=== PATIENT | male | born 1980 | race Caucasian/White ===

== ENCOUNTER → 2017-07-09 | Outpatient (REF) | payer MEDICARE, MEDICAID ==
[~2017-07-09] MED LIST: ARI10 PO; ARIP2TAB9 PO; ARIP5TAB28 PO; ATOR10TA24 PO; ATOR20TA22 PO; ATR10 PO; BRIV50TA PO; CEFU250 PO; CIPR-368 PO; CLON0.5T66 PO; DIAZ5SOL4 PO; DULO60CA51 PO; ENA10 PO; ENA5 PO; ESCI20TA38 PO; GUAI600T48 PO; HUMALOG SC; INSU100V24 SQ; LACO50TA5 PO; LAMO200T46 PO; LANI SC; LANI SQ; LEV125 PO; LEVE100047 PO; LEVO150T72 PO; LOR5/325 PO; MAGIC; MAGIC PO; MEC25 PO; NAPR-731 PO; ONDA4TAB PO; OXY10 PO; OXYIR PO; PHEN100 PO; TAMS0.4C70 PO; VENL75TA PO
== END ==
LOC: ZZSENDIN 15:54
PROVIDERS: ATTEND Family Medicine
DX: Z01.812 Encounter for preprocedural laboratory examination (principal); Z01.810 Encounter for preprocedural cardiovascular examination

== ENCOUNTER → 2017-07-11 | Outpatient (CLI) | payer MEDICARE, MEDICAID ==
--- NOTE | 2017-07-11 09:03 | RADIOLOGY IMAGING REPORT ---
FACILITY: [facility] - [place], [place] PATIENT NAME: Tyrese Love : 1980 MR: [id number] V: [id number] EXAM DATE: ORDERING PHYSICIAN: IOANA HUTCHISON TECHNOLOGIST: Location: [facility] - [place] Patient: Tyrese Love : 1980 Visit/Account:[id number] Date of Sevice: 07/11/2017 Portable chest, one view. HISTORY: Hypertension, preop. COMPARISON: 01/13/2011. A pulse generator projects on the left medial chest. An electrode projects on the left chest and nec k. The heart and mediastinum are unremarkable. Pulmonary vessels are unremarkable. The lungs are c lear. The pleural surfaces are unremarkable. No pneumothorax. No acute bony abnormalities. IMPRESSION: No evidence of acute cardiopulmonary disease. Report Dictated By: Maurice Vasquez MD at 07/11/2017 8:57 AM Report E-Signed By: Maurice Vasquez MD at 07/11/2017 8:59 AM [id number]
== END ==
LOC: RAD 08:11
PROVIDERS: ATTEND Family Medicine
DX: Z95.0 Presence of cardiac pacemaker (principal)
CPT/HCPCS: 71046

== ENCOUNTER → 2017-07-11 | Outpatient (REF) | payer MEDICARE, MEDICAID ==
[2017-07-12 11:11] LABS: INR 1.01
== END ==
LOC: ZZSENDIN 11:51
PROVIDERS: ATTEND Family Medicine
DX: Z01.812 Encounter for preprocedural laboratory examination (principal); Z01.810 Encounter for preprocedural cardiovascular examination; Z91.89 Other specified personal risk factors, not elsewhere classified
CPT/HCPCS: 85610

== ENCOUNTER → 2018-01-18 | Outpatient (CLI) | payer MEDICARE, MEDICAID ==
--- NOTE | 2018-01-18 13:48 | RADIOLOGY IMAGING REPORT ---
[place] [facility] [place] Tyerse Love : 1980 MR: [id number] V: [id number] EXAM DATE: ORDERING PHYSICIAN: IOANA HUTCHISON TECHNOLOGIST: Location: [facility] - [place] Patient: Tyrese Love : 1980 Visit/Account:[id number] Date of Sevice: 01/18/2018 Limited abdominal ultrasound of the right upper quadrant Indication: Elevated LFTs , Comparison: 05/27/2015 Findings Liver is mildly enlarged, but normal in contour and echotexture and measures 18.8 cm in length. There is normal hepatopedal portal venous flow. Reidentified within the right lobe is a large mildly hype rechoic mass. Previously the mass measured 9.7 x 8.8 x 10 cm and now measures 7.8 x 6.3 x 8.7 cm. N o new masses are identified Gallbladder wall thickness is 2.7 mm with no evidence of shadowing stone or sludge within the gallbla dder lumen. Negative sonographic Cannon's sign reported by the technologist. Common duct measures 5.2 mm in maximum diameter with no evidence of shadowing stone. The head and proximal body of the pancreas is unremarkable. The distal body and tail is obscured by o verlying bowel gas. Abdominal aorta and IVC are patent and unremarkable. The right kidney is normal in size, contour, and echotexture and measures 12.5 cm in length. IMPRESSION: 1. Interval decrease in size of the right hepatic mass, previously maximum dimension was 10 cm and o n today's exam is 8.7 cm. The mass has been previously biopsied but pathology results are not availa ble 2. The remainder of the abdominal ultrasound is within normal limits Report Dictated By: Sourav Carrillo at 01/18/2018 1:40 PM Report E-Signed By: Sourav Carrillo at 01/18/2018 1:43 PM WSN:[id number]
== END ==
LOC: US 04:39
PROVIDERS: ATTEND Family Medicine
DX: R93.2 Abnormal findings on diagnostic imaging of liver and biliary tract (principal)
CPT/HCPCS: 76705

== ENCOUNTER → 2018-01-28 | Outpatient (REF) | payer MEDICARE, MEDICAID | LOC: ZZSENDIN 15:57 | PROVIDERS: ATTEND Family Medicine | DX: D37.6 Neoplasm of uncertain behavior of liver, gallbladder and bile ducts (principal) | CPT/HCPCS: 83516 ==

== ENCOUNTER 2018-05-06 19:15 | Emergency (ER) | payer MEDICARE, MEDICAID ==
[~2018-05-06 19:15] MED LIST changes: -ENAL-18 PO
[2018-05-06 19:17] VITALS: BP 107/56
--- NOTE | 2018-05-06 19:18 | ER Report ---
History and Physical Time Seen By MD: 19:18 HPI/ROS CHIEF COMPLAINT: Seizure HISTORY OF PRESENT ILLNESS: 37-year-old male brought in by EMS from home with a known seizure disorder. He had a seizure lasting longer than his usual seizures, which concerned his family. Patient and family stays been compliant on his seizure medication. She is followed by neurology. Patient denies recent illness, increased stress or loss of sleep. Agents last breakthrough seizure was approximately one year ago. At that time. Patient was changing over to my in the antiepileptic indication. Patient notes a mild headache. He notes no fever or chills. He denies photophobia or stiff neck. His glucose by EMS was 260. No medications were administered by EMS. Patient was postictal for EMS in route. REVIEW OF SYSTEMS: Respiratory: No cough, no dyspnea. Cardiovascular: No chest pain, no palpitations. Gastrointestinal: No vomiting, no abdominal pain. Musculoskeletal: No back pain. Allergies: Coded Allergies: amoxicillin (Verified Allergy, Mild, 02/20/17) clavulanic acid (Verified Allergy, Mild, RASH, 02/20/17) erythromycin base (Verified Allergy, Mild, 02/20/17) morphine (Verified Allergy, Mild, NAUSEA VOMITING, 02/20/17) Sulfa (Sulfonamide Antibiotics) (Verified Allergy, Unknown, 02/20/17) Home Meds Active Scripts Naproxen (NAPROXEN) 375 Mg Tablet.dr, 375 MG PO TID for PAIN, #30 TAB 0 Refills Prov:FLORIAN LAGOS MD 02/20/17 Reported Medications Enalapril Maleate (ENALAPRIL MALEATE) 10 Mg Tablet, 10 MG PO QDAY 05/06/18 Tamsulosin Hcl (TAMSULOSIN HCL) 0.4 Mg Cap.er.24h, 0.4 MG PO QHS, #30 07/17/16 Lacosamide (VIMPAT) 50 Mg Tablet, 50 MG PO TID 06/02/15 Levothyroxine Sodium (Synthroid/Levothroid) 0.125 Mg Tab, 0.15 MG PO QDAY 11/25/10 Levetiracetam (Keppra) 1,000 Mg Tablet, 750 MG PO BID 11/25/10 Lamotrigine (Lamictal) 200 Mg Tablet, 400 MG PO BID 11/25/10 Insulin Human Lispro (Humalog) 100 U/Ml Soln, SC PRN TAKE PER SLIDING SCALE 11/25/10 Insulin Glargine (Lantus) 100 U/Ml Soln, 46 UNIT SQ QHS 11/25/10 Discontinued Reported Medications Enalapril Maleate (Vasotec) 10 Mg Tab, 10 MG PO QDAY 08/28/11 Reviewed Nurses Notes: Yes Old Medical Records Reviewed: Yes Hx Smoking: No Smoking Status: Never Smoker Hx Substance Use Disorder: No Hx Alcohol Use: No Constitutional Vital Sign - Last 24 Hours 05/06/18 05/06/18 05/06/18 19:16 19:17 19:45 Temp 98.0 Pulse 112 102 Resp 18 20 B/P (MAP) 107/56 (73) 107/56 Pulse Ox 95 96 Physical Exam Vital signs stable, afebrile, pulse ox normal General Appearance: The patient is alert, has no immediate need for airway protection and no current signs of toxicity. Palpation of the head and neck reveal no tenderness or trauma HEENT: Pupils equal and round no injection. TMs normal, oropharynx with superficial tongue bite [place] Respiratory: Chest is non tender, lungs are clear to auscultation. No chest w all tenderness Cardiac: regular rate and rhythm Gastrointestinal: Abdomen is soft and non tender, no masses, bowel sounds normal. Musculoskeletal: Neck: Neck is supple and non tender. Extremities have full range of motion and are non tender. No evidence of trauma Skin: No rashes or lesions. DIFFERENTIAL DIAGNOSIS: After history and physical exam differential diagnosis was considered for a seizure including but not limited to electrolyte abnormality, alcohol withdrawal, medication noncompliance, head injury, and breakthrough seizure. Medical Decision Making Data Points Result Diagram: 05/06/18190405/06/181904 Laboratory Hematology Test 05/06/18 19:05 05/06/18 19:25 Red Blood Count 5.71 M/uL (4.00-5.60) Mean Corpuscular Volume 88.1 fL (80.0-96.0) Mean Corpuscular Hemoglobin 28.5 pg (26.0-33.0) Mean Corpuscular Hemoglobin Concent 32.3 g/dL (32.0-36.0) Red Cell Distribution Width 14.6 % (11.5-14.5) Mean Platelet Volume 8.5 fL (7.2-11.1) Neutrophils (%) (Auto) 64.6 % (39.4-72.5) Lymphocytes (%) (Auto) 23.8 % (17.6-49.6) Monocytes (%) (Auto) 8.7 % (4.1-12.4) Eosinophils (%) (Auto) 1.3 % (0.4-6.7) Basophils (%) (Auto) 1.6 % (0.3-1.4) Nucleated RBC Relative Count (auto) 0.0 /100WBC Neutrophils # (Auto) 8.2 K/uL (2.0-7.4) Lymphocytes # (Auto) 3.0 K/uL (1.3-3.6) Monocytes # (Auto) 1.1 K/uL (0.3-1.0) Eosinophils # (Auto) 0.2 K/uL (0.0-0.5) Basophils # (Auto) 0.2 K/uL (0.0-0.1) Nucleated RBC Absolute Count (auto) 0.01 K/uL Peripheral Blood Smear Yes Y/N Sodium Level 141 mmol/L (137-145) Potassium Level 4.5 mmol/L (3.5-5.0) Chloride Level 102 mmol/L (98-107) Carbon Dioxide Level 9 mmol/L (22-30) Blood Urea Nitrogen 17 mg/dl (9-21) Creatinine 1.00 mg/dl (0.66-1.25) Glomerular Filtration Rate Calc > 60.0 Random Glucose 255 mg/dl (75-110) Calcium Level 9.9 mg/dl (8.4-10.2) Magnesium Level 2.6 mg/dl (1.7-2.2) Total Bilirubin 0.4 mg/dl (0.2-1.3) Aspartate Amino Transf (AST/SGOT) 34 U/L (0-35) Alanine Aminotransferase (ALT/SGPT) 28 U/L (0-56) Alkaline Phosphatase 544 U/L (0-126) Total Protein 8.8 g/dl (6.3-8.2) Albumin 5.2 g/dl (3.5-5.0) Whole Blood Glucose 234 mg/DL (75-110) Chemistry Test 05/06/18 19:05 05/06/18 19:25 White Blood Count 12.7 k/uL (4.5-11.0) Red Blood Count 5.71 M/uL (4.00-5.60) Hemoglobin 16.2 g/dL (14.0-18.0) Hematocrit 50.3 % (42.0-52.0) Mean Corpuscular Volume 88.1 fL (80.0-96.0) Mean Corpuscular Hemoglobin 28.5 pg (26.0-33.0) Mean Corpuscular Hemoglobin Concent 32.3 g/dL (32.0-36.0) Red Cell Distribution Width 14.6 % (11.5-14.5) Platelet Count 342 K/uL (150-450) Mean Platelet Volume 8.5 fL (7.2-11.1) Neutrophils (%) (Auto) 64.6 % (39.4-72.5) Lymphocytes (%) (Auto) 23.8 % (17.6-49.6) Monocytes (%) (Auto) 8.7 % (4.1-12.4) Eosinophils (%) (Auto) 1.3 % (0.4-6.7) Basophils (%) (Auto) 1.6 % (0.3-1.4) Nucleated RBC Relative Count (auto) 0.0 /100WBC Neutrophils # (Auto) 8.2 K/uL (2.0-7.4) Lymphocytes # (Auto) 3.0 K/uL (1.3-3.6) Monocytes # (Auto) 1.1 K/uL (0.3-1.0) Eosinophils # (Auto) 0.2 K/uL (0.0-0.5) Basophils # (Auto) 0.2 K/uL (0.0-0.1) Nucleated RBC Absolute Count (auto) 0.01 K/uL Peripheral Blood Smear Yes Y/N Glomerular Filtration Rate Calc > 60.0 Calcium Level 9.9 mg/dl (8.4-10.2) Magnesium Level 2.6 mg/dl (1.7-2.2) Total Bilirubin 0.4 mg/dl (0.2-1.3) Aspartate Amino Transf (AST/SGOT) 34 U/L (0-35) Alanine Aminotransferase (ALT/SGPT) 28 U/L (0-56) Alkaline Phosphatase 544 U/L (0-126) Total Protein 8.8 g/dl (6.3-8.2) Albumin 5.2 g/dl (3.5-5.0) Whole Blood Glucose 234 mg/DL (75-110) Toxicology Test 05/06/18 19:05 ED Course/Re-evaluation Clinical Indication for ER IV: IV Access ED Course Patient was admitted to an examination room. H&P was done. The differential diagnoses was considered. Patient very slightly postictal on arrival. The clearing quite well. The seizure lasted longer than his usual seizures which prompted his family called 911. Normally they do not call for EMS support. Family reports patient is compliant on his medication. Patient admits he is compliant. Diagnostic studies are unremarkable. Patient's bicarbonate is low likely secondary to lack of breathing while having a seizure. His alkaline phosphatase is elevated to 544, but this appears chronic. Reviewing old labs. Patient advised to contact his neurologist. Decision to Disposition Date: May 06, 2018 Decision to Disposition Time: 20:04 Depart Departure Latest Vital Signs Vital Signs Date Time Temp Pulse Resp B/P (MAP) Pulse Ox O2 Delivery O2 Flow Rate FiO2 05/06/18 19:45 102 20 96 05/06/18 19:17 98.0 107/56 Impression: Primary Impression: Breakthrough seizure Additional Impressions: History of seizure disorder Leg pain, left Condition: Improved Disposition: HOME OR SELF-CARE Referrals: IOANA HUTCHISON DO (PCP) Patient Instructions: Recurrent Seizures in Adults (ED) Additional Instructions: Follow-up with your neurologist Problem Qualifiers TAL HINES DO May 06, 2018 19:18
[2018-05-06] MEDS ORDERED: ENAL-18 PO (19:30)
[2018-05-06 19:39] LABS: PLATELET COUNT, AUTOMATED 342 K/uL (150-450)
[2018-05-06] MEDS ORDERED: KETOROLAC 30 MG/ML VIAL IVP ONE (19:55)
== END 2018-05-06 20:20 | disposition home or self-care (01) ==
LOC: ER 19:21
DX: G40.909 Epilepsy, unspecified, not intractable, without status epilepticus (principal); M79.605 Pain in left leg; R79.89 Other specified abnormal findings of blood chemistry
CPT/HCPCS: 36416; 80164; 82948; 83735; 85025; 96374; 99283; J1885; 82040; 82247; 82310; 82374; 82435; 82565; 82947; 84075; 84132; 84155; 84295; 84450; 84460; 84520

== ENCOUNTER → 2018-05-06 | Outpatient (CLI) | payer MEDICARE, MEDICAID ==
[~2018-05-06] MED LIST changes: +ENAL-18 PO
== END ==
LOC: AMB 18:54
PROVIDERS: ATTEND Nurse Practitioner
DX: R56.9 Unspecified convulsions (principal); R40.4 Transient alteration of awareness; R42 Dizziness and giddiness
CPT/HCPCS: A0425; A0427

== ENCOUNTER → 2018-05-09 | Outpatient (CLI) | payer MEDICARE, MEDICAID ==
[~2018-05-09] MED LIST changes: +ENAL-18 PO
== END ==
LOC: LAB 14:19
PROVIDERS: ATTEND Psychiatry & Neurology Neurology
DX: G40.919 Epilepsy, unspecified, intractable, without status epilepticus (principal)
CPT/HCPCS: 36415; 80175; 80177